=== PATIENT | female | born 1965 | race Caucasian/White ===

== ENCOUNTER 2017-03-20 08:04 | Emergency (ER) | payer MEDICAID, OTHER ==
[~2017-03-20] VITALS: Ht 162.6 cm; Wt 77.0 kg
[~2017-03-20 08:04] MED LIST: ENOX40DI11 SUBCUT; ESCI20TA PO; LACT1CAP65 PO; LEVO50TA PO; PER10325T PO
[2017-03-20 08:05] VITALS: BP 117/85
[2017-03-20] MEDS ORDERED: HYDROmorphone 1 mg/ml syringe IM ONE (10:05)
[2017-03-20] MEDS ORDERED: naproxen 500mg tablet PO ONE (10:05)
[2017-03-20] MEDS ORDERED: HYDR-3965 PO (10:34)
== END 2017-03-20 11:41 | disposition home or self-care (01) ==
LOC: ER 08:07
DX: S76.312A Strain of muscle, fascia and tendon of the posterior muscle group at thigh level, left thigh, initial encounter (principal); S46.911A Strain of unspecified muscle, fascia and tendon at shoulder and upper arm level, right arm, initial encounter; Z90.49 Acquired absence of other specified parts of digestive tract; Z98.890 Other specified postprocedural states; Z98.51 Tubal ligation status; Z98.84 Bariatric surgery status; Z88.2 Allergy status to sulfonamides; Z88.1 Allergy status to other antibiotic agents; Z79.899 Other long term (current) drug therapy; Z96.652 Presence of left artificial knee joint; X50.1XXA Overexertion from prolonged static or awkward postures, initial encounter; Y93.89 Activity, other specified; Y92.89 Other specified places as the place of occurrence of the external cause; Y99.9 Unspecified external cause status
CPT/HCPCS: 73560; 96372; 99284; J1170

== ENCOUNTER 2017-04-03 07:29 | Emergency (ER) | payer MEDICAID, OTHER ==
[~2017-04-03] VITALS: Ht 162.6 cm; Wt 78.2 kg
[~2017-04-03 07:29] MED LIST changes: +HYDR-3965 PO
[2017-04-03] MEDS ORDERED: HYDR-565 PO (08:58)
[2017-04-03] MEDS ORDERED: HYDROcodone/acetaminophen 10/325mg tab PO ONE (09:00)
[2017-04-03] MEDS ORDERED: ondansetron 4mg rapidly disintigrating tab PO ONE (09:00)
[2017-04-03 09:21] VITALS: BP 111/82
== END 2017-04-03 09:22 | disposition home or self-care (01) ==
LOC: ER 07:31
DX: M25.562 Pain in left knee (principal); G89.29 Other chronic pain; F41.9 Anxiety disorder, unspecified; F32.9 Major depressive disorder, single episode, unspecified; Z88.2 Allergy status to sulfonamides; Z88.1 Allergy status to other antibiotic agents
CPT/HCPCS: 99284

== ENCOUNTER 2017-11-10 06:34 | Inpatient (IN) | payer MEDICAID ==
[2017-11-03 10:23] LABS: BASOPHILS % (AUTO) 0.7 % (0-1); EOSINOPHILS # (AUTO) 0.2 X10'3 (0-0.9); EOSINOPHILS % (AUTO) 3.3 % (0-6); LYMPHOCYTES # (AUTO) 1.7 X10'3 (1.1-4.8); LYMPHOCYTES % (AUTO) 30.7 % (21-51); MEAN CORPUSCULAR HEMOGLOBIN 31.1 PG (27.0-31.0); MEAN CORPUSCULAR HGB CONC 33.6 % (33.0-36.5); MEAN CORPUSCULAR VOLUME 92.6 FL (78-98); MEAN PLATELET VOLUME 6.7 FL (7.4-10.4); MONOCYTES # (AUTO) 0.7 X10'3 (0-0.9); MONOCYTES % (AUTO) 12.2 % (2-12); NEUTROPHILS # (AUTO) 2.9 X10'3 (1.8-7.7); NEUTROPHILS % (AUTO) 53.1 % (42-75); PRE OP HEMATOCRIT 38.6 % (35.0-45.0); PRE OP PLATELET COUNT 427 X10'3 (140-440); RED BLOOD COUNT 4.17 X10'6 (4.20-5.60); RED CELL DISTRIBUTION WIDTH 14.1 % (11.5-14.5)
[2017-11-03 10:34] LABS: PRE OP PROTIME 10.2 SECONDS (9.0-12.0)
[2017-11-03 10:46] LABS: ALBUMIN 3.2 G/DL (3.4-5.0); ALBUMIN/GLOBULIN RATIO 0.8 (1.1-1.5); ALKALINE PHOSPHATASE 142 IU/L (46-116); BLOOD UREA NITROGEN 15 MG/DL (7-18); BUN/CREATININE RATIO 16.3 (6.6-38.0); CALCIUM 8.5 MG/DL (8.5-10.1); CHLORIDE 101 MMOL/L (99-107); CREATININE 0.92 MG/DL (0.40-0.90); PRE OP ALT 36 U/L (30-65); PRE OP ANION GAP 8 (8-16); PRE OP AST 36 U/L (10-37); PRE OP BILIRUB, TOTAL 0.2 MG/DL (0.0-1.0); PRE OP GLUCOSE 77 MG/DL (70-104); PRE OP POTASSIUM 4.1 MMOL/L (3.4-5.1); PRE OP SODIUM 137 MMOL/L (135-145); TOTAL CARBON DIOXIDE 28.3 MMOL/L (24-32); TOTAL PROTEIN 7.2 G/DL (6.4-8.2); eGFR 64 ML/MIN
[2017-11-10] VITALS (21 sets, daily range): BP systolic 92–136; BP diastolic 54–82
[~2017-11-10] VITALS: Ht 162.6 cm; Wt 78.2 kg
[~2017-11-10 06:34] MED LIST changes: +CHOL100044 PO; +Cefazolin 2GM/50ML dext iso,osmotic IVPB IV ONE; -ENOX40DI11 SUBCUT; -HYDR-3965 PO; -LEVO50TA PO; +MULT-269 PO; +OMEP40CA37 PO; -PER10325T PO; +SYN0.088T PO; +acetaminophen 325mg tablet PO ONE; +famotidine 20mg tablet PO ONE; +gabapentin 300mg capsule PO ONE; +metoclopramide 5 mg/ml inj IV ONE; +oxyCODONE SR 10mg (sust. release) tab -2 tabs (20mg) PO ONE; +ringers solution, lacted 1,000 ML IV SCH; +tranexamic acid inj. 1,000 MG in normal saline 100ml IV soln 90 ML IV ONE; +vancomycin inj 1,500 MG in normal saline 300ml IV soln IV ONE
[2017-11-10] MEDS ORDERED: epiNEPHrine 1 mg/ml inj ONE (07:37)
[2017-11-10] MEDS ORDERED: ketorolac trometh. 30mg/ml inj. ONE (07:37)
[2017-11-10] MEDS ORDERED: ceFAZolin 1000mg inj ONE (07:38)
[2017-11-10] MEDS ORDERED: morphine 10mg/ml inj. ONE (07:38)
[2017-11-10] MEDS ORDERED: bacitracin 15gm ointment TP ONE (07:39)
[2017-11-10] MEDS ORDERED: ROPIVAcaine 0.5% (5mg/ml) 30ml vial ONE ×2 (07:39→10:10)
[2017-11-10] MEDS ORDERED: nitroGLYCERIN in D5W 50mg/250ml (Tridil) infusion IV ONE (08:27)
[2017-11-10] MEDS ORDERED: MIDAZolam 1mg/ml 10ml vial ONE (08:30)
[2017-11-10] MEDS ORDERED: cloNIDine hcl/PF 100mcg/ml inj ONE (08:31)
[2017-11-10] MEDS ORDERED: tetracaine 1% (10mg/ml) pres. free inj. ONE (08:32)
[2017-11-10] MEDS ORDERED: fentaNYL/PF 50MCG/1 ML 2ML syringe ONE (08:35)
[2017-11-10] MEDS ORDERED: morphine /PF 1mg/ml 10ml inj. ONE (08:39)
[2017-11-10] MEDS ORDERED: propofol inj 20 ML IV ONE (08:52)
[2017-11-10] MEDS ORDERED: LIDOcaine 1%/PF 5ML 10 MG/ML VIAL ONE (08:52)
[2017-11-10] MEDS ORDERED: Thrombin (Bovine) 5,000 unit vial TP ONE (09:45)
[2017-11-10] MEDS ORDERED: naloxone 2mg/2ml inj 1.6 MG in normal saline 500ml IV soln 500 ML IV PRN (09:53)
[2017-11-10] MEDS ORDERED: ringers solution, lacted 1,000 ML IV SCH (09:53)
[2017-11-10] MEDS ORDERED: ondansetron/PF 4mg/2ml inj IV PRN ×3 (09:55→10:10)
[2017-11-10] MEDS ORDERED: proCHLORperazine 10 MG/2 ml inj IV PRN (09:55)
[2017-11-10] MEDS ORDERED: diphenhydrAMINE 50 mg/ml inj IV PRN (09:55)
[2017-11-10] MEDS ORDERED: morphine 4 MG/ML inj SYRINge IV PRN ×2 (09:55)
[2017-11-10] MEDS ORDERED: meperidine/PF 25mg/ml syringe IV PRN ×3 (09:55)
[2017-11-10] MEDS ORDERED: oxyCODONE IR 5mg (immed. release) tablet PO PRN (10:10)
[2017-11-10] MEDS ORDERED: diphenhydrAMINE 25mg capsule PO PRN ×2 (10:10)
[2017-11-10] MEDS ORDERED: bisacodyl 10mg suppository rectal RC PRN (10:10)
[2017-11-10] MEDS ORDERED: magnesium hydroxide 30ml (MOM) UD suspension PO PRN (10:10)
[2017-11-10] MEDS ORDERED: acetaminophen 325mg tablet PO PRN (10:10)
[2017-11-10] MEDS ORDERED: ROPIVAcaine 0.5% (5mg/ml) 30ml vial IJ ONE (10:14)
[2017-11-10] MEDS ORDERED: ketorolac trometh. 30mg/ml inj. IM ONE (10:20)
[2017-11-10] MEDS ORDERED: epiNEPHrine 1 MG/ML 1 ml ampule **BRONCH ONLY IJ ONE (11:02)
[2017-11-10] MEDS ORDERED: acetaminophen 1,000mg/100ml IV 100 ML IV ONE (11:05)
[2017-11-10] MEDS: oxyCODONE IR 5mg (immed. release) tablet PO PRN ×3 (13:53→21:51)
[2017-11-10] MEDS: gabapentin 300mg capsule PO SCH ×2 (13:53→20:16)
[2017-11-10] MEDS: acetaminophen 325mg tablet PO SCH ×2 (13:53→20:16)
[2017-11-10] MEDS: potassium cl 20mEq in 1/2 NS 1,000 ML IV SCH ×2 (13:54→18:09)
[2017-11-10] MEDS ORDERED: vancomycin/NS 1 GM ADD-VANTAGE 250 ML IV SCH (20:00)
[2017-11-10] MEDS: sennosides 8.6mg tablet PO SCH (20:16)
[2017-11-11] VITALS (8 sets, daily range): BP systolic 110–131; BP diastolic 65–80
[2017-11-11] MEDS: oxyCODONE IR 5mg (immed. release) tablet PO PRN ×5 (01:36→17:57)
[2017-11-11] MEDS: acetaminophen 325mg tablet PO SCH ×3 (01:36→13:33)
[2017-11-11] MEDS: potassium cl 20mEq in 1/2 NS 1,000 ML IV SCH ×2 (02:46→10:09)
[2017-11-11] MEDS: pantoprazole 40mg Tablet.DR PO SCH (09:19)
[2017-11-11] MEDS: gabapentin 300mg capsule PO SCH ×3 (09:19→19:46)
[2017-11-11] MEDS: lactobacillus rhamnosus 10,000 MMU CELLS/CAPSULE PO SCH ×2 (09:19→19:43)
[2017-11-11] MEDS: citalopram 20mg tablet PO SCH (09:19)
[2017-11-11] MEDS: levoTHYROXINE 88mcg tablet PO SCH (09:19)
[2017-11-11] MEDS: enoxaparin 40mg/0.4ml syringe SQ SCH (09:20)
[2017-11-11] MEDS ORDERED: oxyCODONE/APAP 10/325mg tablet PO PRN (18:25)
[2017-11-11] MEDS: celeCOXIB 100mg capsule PO SCH (19:43)
[2017-11-11] MEDS: sennosides 8.6mg tablet PO SCH (19:44)
[2017-11-11] MEDS: oxyCODONE/APAP 10/325mg tablet PO PRN (21:55)
[2017-11-12] MEDS: oxyCODONE/APAP 10/325mg tablet PO PRN ×4 (03:23→14:49)
[2017-11-12 06:00] VITALS: BP 101/70
[2017-11-12] MEDS: pantoprazole 40mg Tablet.DR PO SCH (07:12)
[2017-11-12] MEDS: levoTHYROXINE 88mcg tablet PO SCH (07:12)
[2017-11-12] MEDS: celeCOXIB 100mg capsule PO SCH (07:12)
[2017-11-12] MEDS: lactobacillus rhamnosus 10,000 MMU CELLS/CAPSULE PO SCH (07:12)
[2017-11-12] MEDS: citalopram 20mg tablet PO SCH (07:12)
[2017-11-12] MEDS: gabapentin 300mg capsule PO SCH ×2 (07:12→13:00)
[2017-11-12] MEDS: enoxaparin 40mg/0.4ml syringe SQ SCH (07:13)
[2017-11-12] MEDS ORDERED: lactose-reduced food (Ensure High Protein) 237ml bottle PO SCH (07:30)
[2017-11-12 10:00] VITALS: BP 94/55
[2017-11-12] MEDS ORDERED: acetaminophen 325mg tablet PO PRN (10:10)
== END 2017-11-12 14:55 | disposition home or self-care (01) | DRG 302 ==
LOC: PAS IN 06:34 → EDSTATUS 08:30 → ORTHO 4S 12:20
PROVIDERS: ADMIT Orthopaedic Surgery; ATTEND Orthopaedic Surgery
PROC: 0SUW09Z Supplement Left Knee Joint, Tibial Surface with Liner, Open Approach (ICD-10-PCS; 2017-11-10)
PROC: 3E0T3BZ Introduction of Anesthetic Agent into Peripheral Nerves and Plexi, Percutaneous Approach (ICD-10-PCS; 2017-11-10)
PROC: 0SPD09Z Removal of Liner from Left Knee Joint, Open Approach (ICD-10-PCS; principal; 2017-11-10 08:27)
DX: T84.023A Instability of internal left knee prosthesis, initial encounter (principal); K74.60 Unspecified cirrhosis of liver; E03.9 Hypothyroidism, unspecified; K21.9 Gastro-esophageal reflux disease without esophagitis; Y79.2 Prosthetic and other implants, materials and accessory orthopedic devices associated with adverse incidents; F32.9 Major depressive disorder, single episode, unspecified; F41.9 Anxiety disorder, unspecified; Z98.84 Bariatric surgery status; Z88.2 Allergy status to sulfonamides; Z88.1 Allergy status to other antibiotic agents; Z79.899 Other long term (current) drug therapy
CPT/HCPCS: 0232T; 36415; 71046; 73501; 80053; 84443; 85025; 85610; 85730; 87070; 93005; 97110; 97116; 97162; 97530; A4615; A7000; C1758; C1776; J0131; J0171; J0690; J0735; J1650; J1885; J2001; J2175; J2250; J2270; J2274; J2704; J2765; J2795; J3010; J3370; J3490; J7030; J7120; Q0163